=== PATIENT | male | born 1955 | race Two or more races ===

== ENCOUNTER 2017-04-12 14:35 | Inpatient (IN) | payer MEDICAID ==
[~2017-04-12] VITALS: Ht 170.2 cm; Wt 56.7 kg
[2017-04-12 14:35] VITALS: BP 119/71
[2017-04-12] MEDS ORDERED: LASIX20 M1 ORAL (14:40)
[2017-04-12] MEDS ORDERED: CLOPIDOGREL75 MG ORAL (14:40)
[2017-04-12] MEDS ORDERED: ASPIR 8181 MG ORAL (14:40)
[2017-04-12] MEDS ORDERED: ATORVASTATIN CA40 MG ORAL (14:40)
[2017-04-12] MEDS ORDERED: CARVEDILOL3.125 MG ORAL (14:40)
[2017-04-12] MEDS ORDERED: SPIRONOLACTONE1 EACH ORAL (14:40)
[2017-04-12] MEDS ORDERED: LISINOPRIL2.5 MG ORAL (14:40)
--- NOTE | 2017-04-12 14:41 | Emergency Room Report ---
History of Present Illness General Chief Complaint: Chest Pain Source: Patient, EMS Present Illness HPI This is a 61-year-old male who presented after increased difficulty breathing. Patient gradual onset of symptoms. Patient reports having increased cough as well as the trouble with his respirations for approximately 3 days. The patient had prior history of cardiac disease. Patient was noted to have 2 prior heart attacks. Patient states he is currently a smoker. He states he normally smokes one to 2 cigarettes a day. The patient had been reportedly taking diuretics. Patient prior history of congestive heart failure with an ejection fraction approximately 20%. Allergies: Coded Allergies: No Known Allergies (Unverified , 04/12/17) Patient History Past Medical History: see triage record Reviewed Nursing Documentation: PMH: Agreed, PSxH: Agreed Nursing Documentation-PMH Past Medical History: No History, Except For Hx Cardiac Problems: Yes - CHF Hx Hypertension: Yes Review of Systems All Other Systems: negative except mentioned in HPI Physical Exam Vital Signs Date Time Temp Pulse Resp B/P (MAP) Pulse Ox O2 Delivery O2 Flow Rate FiO2 04/12/17 14:27 98.2 76 20 128/85 98 Room Air Sp02 EP Interpretation: reviewed, normal General Appearance: normal inspection, well appearing, no apparent distress, alert, GCS 15 Head: atraumatic ENT: normal ENT inspection, hearing grossly normal, normal voice Neck: normal inspection, full range of motion, supple, no bony tend Respiratory: normal inspection, lungs clear, normal breath sounds, no respiratory distress, no retraction, no wheezing Cardiovascular #1: regular rate, rhythm, no edema Gastrointestinal: normal inspection, normal bowel sounds, non tender, soft, no guarding, no hernia Genitourinary: no CVA tenderness Musculoskeletal: normal inspection, back normal, normal range of motion Neurologic: normal inspection, alert, oriented x3, responsive, medicare insurance specialist III-XII nml as tested, speech normal Psychiatric: normal inspection, judgement/insight normal, mood/affect normal Skin: normal inspection, normal color, no rash Medical Decision Making Diagnostic Impression: Primary Impression: Chest pain Additional Impressions: ACS (acute coronary syndrome) CHF (congestive heart failure) ER Course Presented for chest pain. Differential diagnosis included but was not limited to acute coronary syndrome, pulmonary embolism, pneumonia, aortic dissection, shingles, pneumothorax, aortic dissection, esophageal rupture, pericarditis. Because of complexity of patient's case laboratory testing and imaging studies were ordered. EKG interpreted by me showed normal sinus rhythm with a rate of 70 with inferior T wave inversion. There is no acute ST changes noted.Laboratory testing was notable for elevated BNP. Initial troponin was negativeThe patient was noted have some wheezing on exam and was given a breathing treatment with DuoNeb with some improvement respiratory difficulty. Patient was also given IV Lasix. Patient was noted to have high risk for acute coronary syndrome due to prior coronary artery disease.Patient was discussed with Dr. hudson for inpatient management Labs Test 04/12/17 15:00 04/12/17 17:10 White Blood Count 8.5 K/UL (4.8-10.8) Red Blood Count 4.80 M/UL (4.70-6.10) Hemoglobin 14.4 G/DL (14.2-18.0) Hematocrit 42.2 % (42.0-52.0) Mean Corpuscular Volume 88 FL (80-99) Mean Corpuscular Hemoglobin 30.1 PG (27.0-31.0) Mean Corpuscular Hemoglobin Concent 34.3 G/DL (32.0-36.0) Red Cell Distribution Width 13.4 % (11.6-14.8) Platelet Count 187 K/UL (150-450) Mean Platelet Volume 8.2 FL (6.5-10.1) Neutrophils (%) (Auto) 69.2 % (45.0-75.0) Lymphocytes (%) (Auto) 17.7 % (20.0-45.0) Monocytes (%) (Auto) 8.8 % (1.0-10.0) Eosinophils (%) (Auto) 3.3 % (0.0-3.0) Basophils (%) (Auto) 1.1 % (0.0-2.0) Prothrombin Time 9.7 SEC (9.30-11.50) Prothromb Time International Ratio 0.9 (0.9-1.1) Activated Partial Thromboplast Time 25 SEC (23-33) Sodium Level 140 mEQ/L (135-145) Potassium Level 4.0 mEQ/L (3.4-4.9) Chloride Level 103 mEQ/L (98-107) Carbon Dioxide Level 26 mEQ/L (20-30) Anion Gap 11 (5-15) Blood Urea Nitrogen 17 mg/dL (7-23) Creatinine 0.8 mg/dL (0.7-1.2) Estimat Glomerular Filtration Rate > 60 mL/min (>60) Glucose Level 102 mg/dL (74-106) Lactic Acid Level 1.30 mmol/L (0.66-2.22) Calcium Level 9.3 mg/dL (8.6-10.2) Total Bilirubin 0.7 mg/dL (0.0-1.2) Aspartate Amino Transf (AST/SGOT) 25 U/L (5-40) Alanine Aminotransferase (ALT/SGPT) 28 U/L (3-41) Alkaline Phosphatase 125 U/L (40-129) Total Creatine Kinase 54 U/L (38-174) Creatine Kinase MB < 1.5 ng/mL (< 6.7) Creatine Kinase MB Relative Index Troponin I < 0.30 ng/mL (<=0.30) Pro-B-Type Natriuretic Peptide 556 pg/mL (0-125) Total Protein 6.7 g/dL (6.6-8.7) Albumin 4.0 g/dL (3.5-5.2) Globulin 2.7 g/dL Albumin/Globulin Ratio 1.4 (1.0-2.7) Urine Color Yellow Urine Appearance Clear Urine pH 6 (4.5-8.0) Urine Specific [place] 1.015 (1.005-1.035) Urine Protein Negative (NEGATIVE) Urine Glucose (UA) Negative (NEGATIVE) Urine Ketones Negative (NEGATIVE) Urine Occult Blood Negative (NEGATIVE) Urine Nitrite Negative (NEGATIVE) Urine Bilirubin Negative (NEGATIVE) Urine Urobilinogen 4 MG/DL (0.0-1.0) Urine Leukocyte Esterase Negative (NEGATIVE) EKG Diagnostic Results Rate: normal - 70 Rhythm: NSR ST Segments: no acute changes Rhythm Strip Diag. Results EP Interpretation: yes Rhythm: NSR, no PVC's, no ectopy Chest X-Ray Diagnostic Results Chest X-Ray Diagnostic Results : Chest X-Ray Ordered: Yes # of Views/Limited/Complete: 1 View Indication: Chest Pain EP Interpretation: No Interpretation: no consolidation, no effusion, no pneumothorax, other - enlarged cardiac silhouette Impression: Other - chf Last Vital Signs Date Time Temp Pulse Resp B/P (MAP) Pulse Ox O2 Delivery O2 Flow Rate FiO2 04/12/17 14:27 98.2 76 20 128/85 98 Room Air Status: unchanged Disposition: ADMITTED INPATIENT Condition: Mario Del Rosario Apr 12, 2017 14:41
[2017-04-12] MEDS ORDERED: Albuterol/Ipratropium 3ml neb HHN ONE (14:45)
--- NOTE | 2017-04-12 15:11 | Diagnostic Imaging Report ---
Indication: Dyspnea Comparison: None A single view chest radiograph was obtained. Findings: Cardiomediastinal appearance is within normal limits for age. Pulmonary vascularity is appropriate. The diaphragmatic contour is smooth and costophrenic angles are sharp. No pleural effusions are identified. The bones are unremarkable. Impression: No acute findings
[2017-04-12] MEDS ORDERED: Unasyn 3gm Inj ONE ×2 (15:13→23:37)
[2017-04-12] MEDS ORDERED: Tubing IV Cassette IV ONE (15:13)
[2017-04-12] MEDS ORDERED: NS 55 ML IV ONE (15:13)
[2017-04-12] MEDS: Ampicillin/Sulbactam Sod 3 GM in NS 110 ML IV SCH ×2 (15:15→20:45)
[2017-04-12 15:44] LABS: BASOPHILS % (AUTO) 1.1 % (0.0-2.0); EOSINOPHILS % (AUTO) 3.3 % (0.0-3.0); LYMPHOCYTES % (AUTO) 17.7 % (20.0-45.0); MEAN CORPUSCULAR HEMOGLOBIN 30.1 PG (27.0-31.0); MEAN CORPUSCULAR HGB CONC 34.3 G/DL (32.0-36.0); MEAN CORPUSCULAR VOLUME 88 FL (80-99); MEAN PLATELET VOLUME 8.2 FL (6.5-10.1); MONOCYTES % (AUTO) 8.8 % (1.0-10.0); NEUTROPHILS % (AUTO) 69.2 % (45.0-75.0); PLATELET COUNT 187 K/UL (150-450); RED CELL DISTRIBUTION WIDTH 13.4 % (11.6-14.8); WHITE BLOOD COUNT 8.5 K/UL (4.8-10.8)
[2017-04-12 15:55] LABS: INR 0.9 (0.9-1.1); PROTHROMBIN TIME 9.7 SEC (9.30-11.50)
[2017-04-12 15:59] LABS: TROPONIN I < 0.30 ng/mL (<=0.30)
[2017-04-12 16:00] VITALS: BP 113/69
[2017-04-12 16:01] LABS: ALANINE AMINOTRANSFERASE 28 U/L (3-41); ALBUMIN/GLOBULIN RATIO 1.4 (1.0-2.7); ANION GAP 11 (5-15); ASPARTATE AMINO TRANSFERASE 25 U/L (5-40); CALCIUM 9.3 mg/dL (8.6-10.2); CARBON DIOXIDE 26 mEQ/L (20-30); CHLORIDE 103 mEQ/L (98-107); CREATININE 0.8 mg/dL (0.7-1.2); GLOMERULAR FILTRATION RATE > 60 mL/min (>60); HEMOLYSIS 7; SODIUM 140 mEQ/L (135-145); TOTAL PROTEIN 6.7 g/dL (6.6-8.7)
[2017-04-12 16:12] LABS: CKMB < 1.5 ng/mL (< 6.7)
[2017-04-12 17:44] LABS: APPEARANCE,URINE CLEAR; KETONES,URINE NEGATIVE (NEGATIVE); LEUKOCYTE ESTERASE ,URINE NEGATIVE (NEGATIVE); NITRITE,URINE NEGATIVE (NEGATIVE); PH,URINE 6 (4.5-8.0); PROTEIN,URINE NEGATIVE (NEGATIVE); UROBILINOGEN,URINE 4 MG/DL (0.0-1.0)
[2017-04-12 18:00] VITALS: BP 117/77
[2017-04-12] MEDS ORDERED: Nitroglycerin Subl 0.4mg tab SL PRN (19:45)
[2017-04-12] MEDS ORDERED: Ketorolac 30mg Inj IV PRN (19:45)
[2017-04-12] MEDS ORDERED: Morphine Sulfate 2mg/ml Inj IVP PRN (19:45)
[2017-04-12] MEDS ORDERED: Miralax 17gm pkt ORAL PRN (19:45)
[2017-04-12] MEDS ORDERED: Albuterol/Ipratropium 3ml neb HHN PRN (19:45)
[2017-04-12] MEDS ORDERED: dilTIAZem HCl 25mg/5ml Inj IV PRN (19:45)
[2017-04-12] MEDS ORDERED: Enalaprilat 2.5mg/2ml Inj IV PRN (19:45)
[2017-04-12 23:00] VITALS: BP 109/78
[2017-04-12] MEDS: Atorvastatin 80mg tab ORAL SCH (23:51)
[2017-04-12] MEDS: Heparin 5000 units/ml inj SUBQ SCH (23:57)
[2017-04-13] VITALS: BP 119/81
[2017-04-13 04:00] VITALS: BP 112/72
[2017-04-13 08:19] VITALS: BP 112/66
[2017-04-13 08:25] LABS: BASOPHILS % (AUTO) 0.8 % (0.0-2.0); EOSINOPHILS % (AUTO) 3.4 % (0.0-3.0); LYMPHOCYTES % (AUTO) 16.7 % (20.0-45.0); MEAN CORPUSCULAR HEMOGLOBIN 30.5 PG (27.0-31.0); MEAN CORPUSCULAR HGB CONC 34.5 G/DL (32.0-36.0); MEAN CORPUSCULAR VOLUME 89 FL (80-99); MEAN PLATELET VOLUME 8.5 FL (6.5-10.1); NEUTROPHILS % (AUTO) 71.1 % (45.0-75.0); PLATELET COUNT 182 K/UL (150-450); RED CELL DISTRIBUTION WIDTH 13.6 % (11.6-14.8); WHITE BLOOD COUNT 9.2 K/UL (4.8-10.8)
[2017-04-13 08:34] LABS: CHOLESTEROL/HDL RATIO 5.8 (3.3-4.4); CRP QUANT 0.8 mg/dL (< 0.5)
[2017-04-13 08:37] LABS: TROPONIN I < 0.30 ng/mL (<=0.30)
[2017-04-13 08:46] LABS: THYROID STIMULATING HORMONE 0.679 uIU/mL (0.300-4.500)
[2017-04-13] MEDS ORDERED: Aspirin EC 81mg tab ORAL SCH (09:00)
[2017-04-13] MEDS: Heparin 5000 units/ml inj SUBQ SCH ×2 (10:02→20:25)
[2017-04-13] MEDS: Lisinopril 2.5mg tab ORAL SCH (10:11)
[2017-04-13 11:26] VITALS: BP 118/78
[2017-04-13] MEDS: Aspirin Baby 81mg ORAL SCH (11:49)
--- NOTE | 2017-04-13 11:54 | History and Physical ---
History of Present Illness General Date patient seen: Apr 12, 2017 Reason for Hospitalization: Chest Pain Present Illness HPI 61-year-old homeless male who presented after increased difficulty breathing. Patient gradual onset of symptoms. Patient reports having increased cough as well as the trouble with his respirations for approximately 3 days. C/O of chest pain as well. Patient states he is currently a smoker. The patient had been reportedly taking diuretics. Patient prior history of congestive heart failure with an ejection fraction approximately 20%. Allergies: Coded Allergies: No Known Allergies (Unverified , 04/12/17) Medication History Scheduled Aspirin* (Aspir 81*), 81 MG ORAL DAILY, (Reported) Atorvastatin Calcium* (Atorvastatin Calcium*), 40 MG ORAL BEDTIME, (Reported) Carvedilol* (Carvedilol*), 3.125 MG ORAL EVERY 12 HOURS, (Reported) Clopidogrel* (Clopidogrel*), 75 MG ORAL DAILY, (Reported) Furosemide* (Lasix*), 20 MG ORAL TWICE A DAY, (Reported) Lisinopril* (Lisinopril*), 2.5 MG ORAL DAILY, (Reported) Spironolact/Hydrochlorothiazid (Spironolactone-Hctz 25-25 Tab), 1 TAB ORAL DAILY , (Reported) Patient History Healthcare decision maker Resuscitation status Full Code Advanced Directive on File No Past Medical/Surgical History Past Medical/Surgical History: (1) Cardiomyopathy Review of Systems Constitutional: Reports: no symptoms Eye: Reports: no symptoms ENT: Reports: no symptoms Physical Exam General Appearance: WD/WN Lines, tubes and drains: peripheral HEENT: normocephalic, atraumatic, anicteric Neck: non-tender, normal alignment Respiratory/Chest: chest wall non-tender Breasts: no masses Cardiovascular/Chest: normal peripheral pulses Abdomen: normal bowel sounds, non tender Genitourinary/Rectal: normal genital exam Extremities: normal range of motion Last 24 Hour Vital Signs Date Time Temp Pulse Resp B/P (MAP) Pulse Ox O2 Delivery O2 Flow Rate FiO2 04/13/17 11:26 97.7 79 20 118/78 98 Room Air 04/13/17 10:11 112/66 04/13/17 10:11 77 112/66 04/13/17 08:19 97.3 77 20 112/66 97 Room Air 04/13/17 07:22 68 16 Room Air 04/13/17 06:24 57 04/13/17 06:23 67 04/13/17 04:00 81 04/13/17 04:00 97.3 82 20 112/72 93 Room Air 04/13/17 03:38 84 04/13/17 00:00 75 04/13/17 00:00 96.6 69 21 119/81 94 Room Air 04/12/17 23:00 70 17 109/78 95 Room Air 04/12/17 23:00 98.2 70 17 109/78 95 Room Air 04/12/17 21:00 69 119/81 04/12/17 18:00 67 18 117/77 94 Room Air 04/12/17 16:00 66 12 113/69 100 Room Air 04/12/17 15:12 70 15 98 Room Air 04/12/17 15:02 66 16 99 Room Air 04/12/17 15:02 66 16 Room Air 04/12/17 14:35 76 20 Room Air 04/12/17 14:35 69 16 119/71 96 Room Air 04/12/17 14:27 98.2 76 20 128/85 98 Room Air Intake and Output 04/13/17 04/14/17 19:00 07:00 Intake Total 320 ml Output Total 350 ml Balance -30 ml Intake Oral 320 ml Output Urine Total 350 ml Laboratory Tests Test 04/12/17 15:00 04/12/17 17:10 04/13/17 06:54 White Blood Count 8.5 K/UL (4.8-10.8) 9.2 K/UL (4.8-10.8) Red Blood Count 4.80 M/UL (4.70-6.10) 5.30 M/UL (4.70-6.10) Hemoglobin 14.4 G/DL (14.2-18.0) 16.2 G/DL (14.2-18.0) Hematocrit 42.2 % (42.0-52.0) 47.0 % (42.0-52.0) Mean Corpuscular Volume 88 FL (80-99) 89 FL (80-99) Mean Corpuscular Hemoglobin 30.1 PG (27.0-31.0) 30.5 PG (27.0-31.0) Mean Corpuscular Hemoglobin Concent 34.3 G/DL (32.0-36.0) 34.5 G/DL (32.0-36.0) Red Cell Distribution Width 13.4 % (11.6-14.8) 13.6 % (11.6-14.8) Platelet Count 187 K/UL (150-450) 182 K/UL (150-450) Mean Platelet Volume 8.2 FL (6.5-10.1) 8.5 FL (6.5-10.1) Neutrophils (%) (Auto) 69.2 % (45.0-75.0) 71.1 % (45.0-75.0) Lymphocytes (%) (Auto) 17.7 % (20.0-45.0) L 16.7 % (20.0-45.0) L Monocytes (%) (Auto) 8.8 % (1.0-10.0) 8.0 % (1.0-10.0) Eosinophils (%) (Auto) 3.3 % (0.0-3.0) H 3.4 % (0.0-3.0) H Basophils (%) (Auto) 1.1 % (0.0-2.0) 0.8 % (0.0-2.0) Prothrombin Time 9.7 SEC (9.30-11.50) 10.0 SEC (9.30-11.50) Prothromb Time International Ratio 0.9 (0.9-1.1) 1.0 (0.9-1.1) Activated Partial Thromboplast Time 25 SEC (23-33) 27 SEC (23-33) Sodium Level 140 mEQ/L (135-145) Potassium Level 4.0 mEQ/L (3.4-4.9) Chloride Level 103 mEQ/L (98-107) Carbon Dioxide Level 26 mEQ/L (20-30) Anion Gap 11 (5-15) Blood Urea Nitrogen 17 mg/dL (7-23) Creatinine 0.8 mg/dL (0.7-1.2) Estimat Glomerular Filtration Rate > 60 mL/min (>60) Glucose Level 102 mg/dL (74-106) Lactic Acid Level 1.30 mmol/L (0.66-2.22) Calcium Level 9.3 mg/dL (8.6-10.2) Total Bilirubin 0.7 mg/dL (0.0-1.2) Aspartate Amino Transf (AST/SGOT) 25 U/L (5-40) Alanine Aminotransferase (ALT/SGPT) 28 U/L (3-41) Alkaline Phosphatase 125 U/L (40-129) Total Creatine Kinase 54 U/L (38-174) Creatine Kinase MB < 1.5 ng/mL (< 6.7) Creatine Kinase MB Relative Index Troponin I < 0.30 ng/mL (<=0.30) < 0.30 ng/mL (<=0.30) Pro-B-Type Natriuretic Peptide 556 pg/mL (0-125) H Total Protein 6.7 g/dL (6.6-8.7) Albumin 4.0 g/dL (3.5-5.2) Globulin 2.7 g/dL Albumin/Globulin Ratio 1.4 (1.0-2.7) Urine Color Yellow Urine Appearance Clear Urine pH 6 (4.5-8.0) Urine Specific [place] 1.015 (1.005-1.035) Urine Protein Negative (NEGATIVE) Urine Glucose (UA) Negative (NEGATIVE) Urine Ketones Negative (NEGATIVE) Urine Occult Blood Negative (NEGATIVE) Urine Nitrite Negative (NEGATIVE) Urine Bilirubin Negative (NEGATIVE) Urine Urobilinogen 4 MG/DL (0.0-1.0) H Urine Leukocyte Esterase Negative (NEGATIVE) C-Reactive Protein, Quantitative 0.8 mg/dL (< 0.5) H Triglycerides Level 129 mg/dL (< 150) Cholesterol Level 227 mg/dL (< 200) H LDL Cholesterol 162 mg/dL (60-99) H HDL Cholesterol 39 mg/dL (> 60) Cholesterol/HDL Ratio 5.8 (3.3-4.4) H Thyroid Stimulating Hormone (TSH) 0.679 uIU/mL (0.300-4.500) Height (Feet): 5 Height (Inches): 7.00 Weight (Pounds): 125 Medications Current Medications Medications (Trade) Dose Ordered Sig/Cinda Route PRN Reason Start Time Stop Time Status Last Admin Dose Admin Acetaminophen (Tylenol) 650 mg Q4H PRN ORAL FEVER 04/12/17 19:45 05/12/17 19:44 Albuterol/ Ipratropium (DuoNeb 0.5-3(2.5)mg/3ml) 3 ml EVERY 4 HOURS PRN HHN Shortness of Breath 04/12/17 19:45 04/17/17 19:44 Aspirin (ASA) 162 mg DAILY ORAL 04/13/17 11:00 05/13/17 10:59 Atorvastatin Calcium (Lipitor) 40 mg BEDTIME ORAL 04/12/17 21:00 05/12/17 20:59 04/12/17 23:51 Carvedilol (Coreg) 3.125 mg EVERY 12 HOURS ORAL 04/12/17 21:00 05/12/17 20:59 04/13/17 10:11 Clopidogrel Bisulfate (Plavix) 75 mg DAILY ORAL 04/13/17 09:00 05/13/17 08:59 04/13/17 09:59 Diltiazem HCl (Cardizem) 10 mg EVERY HOUR PRN IV heart rate more than 120, 04/12/17 19:45 05/12/17 19:44 Enalaprilat (Vasotec) 2.5 mg EVERY 6 HOURS PRN IV sbp more than 160 04/12/17 19:45 05/12/17 19:44 Furosemide (Lasix) 20 mg TWICE A DAY ORAL 04/13/17 09:00 05/13/17 08:59 04/13/17 10:00 Heparin Sodium (Porcine) (Heparin 5000 units/ml) 5,000 units EVERY 12 HOURS SUBQ 04/12/17 21:00 05/12/17 20:59 04/13/17 10:02 Ketorolac Tromethamine (Toradol 30mg) 30 mg Q6HR PRN IV moderate pain ( 4-6) 04/12/17 19:45 04/17/17 19:44 04/13/17 10:13 Lisinopril (Zestril) 2.5 mg DAILY ORAL 04/13/17 09:00 05/13/17 08:59 04/13/17 10:11 Morphine Sulfate (Morphine Sulfate) 2 mg EVERY 4 HOURS PRN IVP severe Pain (Pain Scale 7-10) 04/12/17 19:45 04/19/17 19:44 Nitroglycerin (Ntg) 0.4 mg PRN PRN SL Prn Chest Pain EVERY 5 MINUTES 04/12/17 19:45 05/12/17 19:44 Ondansetron HCl (Zofran) 4 mg Q6H PRN IVP Nausea & Vomiting 04/12/17 19:45 05/12/17 19:44 Polyethylene Glycol (Miralax) 17 gm DAILYPRN PRN ORAL Constipation 04/12/17 19:45 05/12/17 19:44 Temazepam (Restoril) 15 mg HSPRN PRN ORAL Insomnia 04/12/17 19:45 04/19/17 19:44 Assessment/Plan Problem List: (1) Purulent bronchitis ICD Codes: J41.1 - Mucopurulent chronic bronchitis SNOMED: 90026782 (2) ACS (acute coronary syndrome) ICD Codes: I24.9 - Acute ischemic heart disease, unspecified SNOMED: 604302823 (3) Cardiomyopathy ICD Codes: I42.9 - Cardiomyopathy, unspecified SNOMED: 78097368 Assessment/Plan cardiology evaluation respiratory treatment echo serial enzymes antitussives. LARISSA MAXWELL Apr 13, 2017 11:54
--- NOTE | 2017-04-13 11:56 | Pulmonology Progress Note ---
Assessment/Plan Problems: (1) Purulent bronchitis (2) ACS (acute coronary syndrome) (3) Cardiomyopathy Assessment/Plan enzymes negative respiratory treatment social service consult Subjective ROS Limited/Unobtainable: No Constitutional: Reports: no symptoms HEENT: Repors: no symptoms Respiratory: Reports: no symptoms Allergies: Coded Allergies: No Known Allergies (Unverified , 04/12/17) Objective Last 24 Hour Vital Signs Date Time Temp Pulse Resp B/P (MAP) Pulse Ox O2 Delivery O2 Flow Rate FiO2 04/13/17 11:26 97.7 79 20 118/78 98 Room Air 04/13/17 10:11 112/66 04/13/17 10:11 77 112/66 04/13/17 08:19 97.3 77 20 112/66 97 Room Air 04/13/17 07:22 68 16 Room Air 04/13/17 06:24 57 04/13/17 06:23 67 04/13/17 04:00 81 04/13/17 04:00 97.3 82 20 112/72 93 Room Air 04/13/17 03:38 84 04/13/17 00:00 75 04/13/17 00:00 96.6 69 21 119/81 94 Room Air 04/12/17 23:00 70 17 109/78 95 Room Air 04/12/17 23:00 98.2 70 17 109/78 95 Room Air 04/12/17 21:00 69 119/81 04/12/17 18:00 67 18 117/77 94 Room Air 04/12/17 16:00 66 12 113/69 100 Room Air 04/12/17 15:12 70 15 98 Room Air 04/12/17 15:02 66 16 99 Room Air 04/12/17 15:02 66 16 Room Air 04/12/17 14:35 76 20 Room Air 04/12/17 14:35 69 16 119/71 96 Room Air 04/12/17 14:27 98.2 76 20 128/85 98 Room Air Intake and Output 04/13/17 04/14/17 19:00 07:00 Intake Total 320 ml Output Total 350 ml Balance -30 ml Intake Oral 320 ml Output Urine Total 350 ml General Appearance: no acute distress Respiratory/Chest: chest wall non-tender, normal breath sounds Cardiovascular: normal peripheral pulses, normal rate Abdomen: normal bowel sounds, soft, non tender Extremities: no cyanosis Laboratory Tests 04/12/17 15:00: White Blood Count 8.5, Red Blood Count 4.80, Hemoglobin 14.4, Hematocrit 42.2, Mean Corpuscular Volume 88, Mean Corpuscular Hemoglobin 30.1, Mean Corpuscular Hemoglobin Concent 34.3, Red Cell Distribution Width 13.4, Platelet Count 187, Mean Platelet Volume 8.2, Neutrophils (%) (Auto) 69.2, Lymphocytes (%) (Auto) 17.7L, Monocytes (%) (Auto) 8.8, Eosinophils (%) (Auto) 3.3H, Basophils (%) ( Auto) 1.1, Prothrombin Time 9.7, Prothromb Time International Ratio 0.9, Activated Partial Thromboplast Time 25, Sodium Level 140, Potassium Level 4.0, Chloride Level 103, Carbon Dioxide Level 26, Anion Gap 11, Blood Urea Nitrogen 17, Creatinine 0.8, Estimat Glomerular Filtration Rate > 60, Glucose Level 102, Lactic Acid Level 1.30, Calcium Level 9.3, Total Bilirubin 0.7, Aspartate Amino Transf (AST/SGOT) 25, Alanine Aminotransferase (ALT/SGPT) 28, Alkaline Phosphatase 125, Total Creatine Kinase 54, Creatine Kinase MB < 1.5, Creatine Kinase MB Relative Index , Troponin I < 0.30, Pro-B-Type Natriuretic Peptide 556H, Total Protein 6.7, Albumin 4.0, Globulin 2.7, Albumin/Globulin Ratio 1.4 04/12/17 17:10: Urine Color Yellow, Urine Appearance Clear, Urine pH 6, Urine Specific [place] 1.015, Urine Protein Negative, Urine Glucose (UA) Negative, Urine Ketones Negative, Urine Occult Blood Negative, Urine Nitrite Negative, Urine Bilirubin Negative, Urine Urobilinogen 4H, Urine Leukocyte Esterase Negative 04/13/17 06:54: White Blood Count 9.2, Red Blood Count 5.30, Hemoglobin 16.2, Hematocrit 47.0, Mean Corpuscular Volume 89, Mean Corpuscular Hemoglobin 30.5, Mean Corpuscular Hemoglobin Concent 34.5, Red Cell Distribution Width 13.6, Platelet Count 182, Mean Platelet Volume 8.5, Neutrophils (%) (Auto) 71.1, Lymphocytes (%) (Auto) 16.7L, Monocytes (%) (Auto) 8.0, Eosinophils (%) (Auto) 3.4H, Basophils (%) ( Auto) 0.8, Prothrombin Time 10.0, Prothromb Time International Ratio 1.0, Activated Partial Thromboplast Time 27, Troponin I < 0.30, C-Reactive Protein, Quantitative 0.8H, Triglycerides Level 129, Cholesterol Level 227H, LDL Cholesterol 162H, HDL Cholesterol 39, Cholesterol/HDL Ratio 5.8H, Thyroid Stimulating Hormone (TSH) 0.679 Current Medications Medications (Trade) Dose Ordered Sig/Cinda Route PRN Reason Start Time Stop Time Status Last Admin Dose Admin Acetaminophen (Tylenol) 650 mg Q4H PRN ORAL FEVER 04/12/17 19:45 05/12/17 19:44 Albuterol/ Ipratropium (DuoNeb 0.5-3(2.5)mg/3ml) 3 ml EVERY 4 HOURS PRN HHN Shortness of Breath 04/12/17 19:45 04/17/17 19:44 Aspirin (ASA) 162 mg DAILY ORAL 04/13/17 11:00 05/13/17 10:59 04/13/17 11:49 Atorvastatin Calcium (Lipitor) 40 mg BEDTIME ORAL 04/12/17 21:00 05/12/17 20:59 04/12/17 23:51 Carvedilol (Coreg) 3.125 mg EVERY 12 HOURS ORAL 04/12/17 21:00 05/12/17 20:59 04/13/17 10:11 Clopidogrel Bisulfate (Plavix) 75 mg DAILY ORAL 04/13/17 09:00 05/13/17 08:59 04/13/17 09:59 Diltiazem HCl (Cardizem) 10 mg EVERY HOUR PRN IV heart rate more than 120, 04/12/17 19:45 05/12/17 19:44 Enalaprilat (Vasotec) 2.5 mg EVERY 6 HOURS PRN IV sbp more than 160 04/12/17 19:45 05/12/17 19:44 Furosemide (Lasix) 20 mg TWICE A DAY ORAL 04/13/17 09:00 05/13/17 08:59 04/13/17 10:00 Heparin Sodium (Porcine) (Heparin 5000 units/ml) 5,000 units EVERY 12 HOURS SUBQ 04/12/17 21:00 05/12/17 20:59 04/13/17 10:02 Ketorolac Tromethamine (Toradol 30mg) 30 mg Q6HR PRN IV moderate pain ( 4-6) 04/12/17 19:45 04/17/17 19:44 04/13/17 10:13 Lisinopril (Zestril) 2.5 mg DAILY ORAL 04/13/17 09:00 05/13/17 08:59 04/13/17 10:11 Morphine Sulfate (Morphine Sulfate) 2 mg EVERY 4 HOURS PRN IVP severe Pain (Pain Scale 7-10) 04/12/17 19:45 04/19/17 19:44 Nitroglycerin (Ntg) 0.4 mg PRN PRN SL Prn Chest Pain EVERY 5 MINUTES 04/12/17 19:45 05/12/17 19:44 Ondansetron HCl (Zofran) 4 mg Q6H PRN IVP Nausea & Vomiting 04/12/17 19:45 05/12/17 19:44 Polyethylene Glycol (Miralax) 17 gm DAILYPRN PRN ORAL Constipation 04/12/17 19:45 05/12/17 19:44 Temazepam (Restoril) 15 mg HSPRN PRN ORAL Insomnia 04/12/17 19:45 04/19/17 19:44 LARISSA MAXWELL Apr 13, 2017 11:56
[2017-04-13] MEDS ORDERED: Promethazine/Codeine 5ml UD ORAL PRN (12:00)
[2017-04-13 15:20] VITALS: BP 102/62
[2017-04-13] MEDS: Theophylline ER 100mg ORAL SCH (20:23)
[2017-04-13] MEDS: Atorvastatin 80mg tab ORAL SCH (20:24)
--- NOTE | 2017-04-13 20:36 | Cardiology Progress Note ---
Assessment/Plan Assessment/Plan chest pain for 2 mon few seond at a time worse only in postion nto with activity cm global sig mr htn repeorted hs of stent this particular pain which he is now having with neg trop on going for 2 mon lasts a few sec and only in certian position not worse with activity sound m/s in origin he apprently has underlyign cad which if was a cause of this pain i would expect some degree of abn cardiac enzyme which ehdose not have echo reviewed global hypo i suspect the increase apical echo are trabeculation rather than a thrombus there is wall motion in the are but hypokinetic not dyskinetic 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 all trop neg recently has had extensive eval at [facility] since his torp are neg and pain so atypical i dont want to expose him to more radiation and testing at this time Objective Last 24 Hour Vital Signs Date Time Temp Pulse Resp B/P (MAP) Pulse Ox O2 Delivery O2 Flow Rate FiO2 04/13/17 19:18 72 16 Room Air 21 04/13/17 16:00 66 04/13/17 15:20 97.7 73 20 102/62 96 Room Air 04/13/17 12:00 80 04/13/17 11:26 97.7 79 20 118/78 98 Room Air 04/13/17 10:11 112/66 04/13/17 10:11 77 112/66 04/13/17 08:19 97.3 77 20 112/66 97 Room Air 04/13/17 08:00 74 04/13/17 07:22 68 16 Room Air 04/13/17 06:24 57 04/13/17 06:23 67 04/13/17 04:00 81 04/13/17 04:00 97.3 82 20 112/72 93 Room Air 04/13/17 03:38 84 04/13/17 00:00 75 04/13/17 00:00 96.6 69 21 119/81 94 Room Air 04/12/17 23:00 70 17 109/78 95 Room Air 04/12/17 23:00 98.2 70 17 109/78 95 Room Air 04/12/17 21:00 69 119/81 Intake and Output 04/13/17 04/14/17 19:00 07:00 Intake Total 810 ml Output Total 550 ml Balance 260 ml Intake Oral 810 ml Output Urine Total 550 ml Laboratory Tests Test 04/13/17 06:54 White Blood Count 9.2 K/UL (4.8-10.8) Red Blood Count 5.30 M/UL (4.70-6.10) Hemoglobin 16.2 G/DL (14.2-18.0) Hematocrit 47.0 % (42.0-52.0) Mean Corpuscular Volume 89 FL (80-99) Mean Corpuscular Hemoglobin 30.5 PG (27.0-31.0) Mean Corpuscular Hemoglobin Concent 34.5 G/DL (32.0-36.0) Red Cell Distribution Width 13.6 % (11.6-14.8) Platelet Count 182 K/UL (150-450) Mean Platelet Volume 8.5 FL (6.5-10.1) Neutrophils (%) (Auto) 71.1 % (45.0-75.0) Lymphocytes (%) (Auto) 16.7 % (20.0-45.0) L Monocytes (%) (Auto) 8.0 % (1.0-10.0) Eosinophils (%) (Auto) 3.4 % (0.0-3.0) H Basophils (%) (Auto) 0.8 % (0.0-2.0) Prothrombin Time 10.0 SEC (9.30-11.50) Prothromb Time International Ratio 1.0 (0.9-1.1) Activated Partial Thromboplast Time 27 SEC (23-33) Troponin I < 0.30 ng/mL (<=0.30) C-Reactive Protein, Quantitative 0.8 mg/dL (< 0.5) H Triglycerides Level 129 mg/dL (< 150) Cholesterol Level 227 mg/dL (< 200) H LDL Cholesterol 162 mg/dL (60-99) H HDL Cholesterol 39 mg/dL (> 60) Cholesterol/HDL Ratio 5.8 (3.3-4.4) H Thyroid Stimulating Hormone (TSH) 0.679 uIU/mL (0.300-4.500) MAIA COPELAND Apr 13, 2017 20:36
[2017-04-14 00:18] VITALS: BP 98/49
--- NOTE | 2017-04-14 03:45 | Consultation ---
DATE OF CONSULTATION: 04/13/2017 CARDIAC CONSULTATION CONSULTING PHYSICIAN: Grabiel García M.D. REFERRING PHYSICIAN: Mata Holbrook M.D. REASON FOR REFERRAL: Chest pain. History of present illness: This is a middle-aged gentleman, who tells me he has been having two months of pain in the left side of the chest radiating to the back in certain position, twisting and turning. He states it does not get worse with activity and does not get worse with taking deep breath or coughing or in certain position. This has been going on for approximately two months. The pain lasts usually a few seconds and not exacerbated by activity. He has had this pain evaluated at [facility]. He had some kind of testing done one month ago and he was immediately discharged after that. He states he has had history of myocardial infarction on prior occasions and stenting and he has had poor muscle function on prior occasions. He does not have any PND or orthopnea. He has no palpitations, occasional dizziness, or lightheadedness. Past Medical History: Positive for high blood pressure, high cholesterol, heart attack, and stent. No cancer. No stroke. No hepatitis. No tuberculosis, asthma, or emphysema. No ulcers. No kidney or liver problems. No thyroid problems, anemia, or arthritis. ALLERGIES: He is not allergic to any medications. SOCIAL HISTORY: He smokes one to two cigarettes per day. PHYSICAL EXAMINATION: General: Shows to be middle-aged gentleman, in no respiratory distress. NECK: Supple. No jugular venous distention. LUNGS: Relatively clear although he has some rhonchi occasionally. Cardiac: Regular rate and rhythm. No heaves or thrills noted. He has a very faint holosystolic regurgitant murmur. ABDOMEN: Soft and nontender. Positive bowel sounds. Extremities: There is no clubbing or cyanosis nor is there any edema. Neurological: He is awake, alert, responsive, and in no apparent respiratory distress. Laboratory And Diagnostic Data: An electrocardiogram performed shows normal sinus rhythm with T-wave inversion in III and biphasic T-waves in aVF. No other significant abnormalities are noted. An echocardiogram has been performed. Unfortunately, I am unable to pull up the study to review. It showed severe global hypokinesis, ejection fraction 20% to 25%, questionable apical thrombus, E-point septal separation, moderate aortic cusp sclerosis, [id number] mitral regurgitation, pulmonary systolic pressure was in the 40s. His blood test, he has had white count of 9.2, hemoglobin 16.2, and platelet count 182,000. Sodium 140, potassium 4.0, chloride 103, bicarbonate 26, BUN 17, creatinine 0.8, and glucose of 102. Lactic acid is negative. Troponin was less than 0.01 on two separate occasions. ProBNP is only 556. Total cholesterol 227, LDL of 162, and HDL of 39. TSH is 0.6. His INR is 1.0 and PTT of 27. Urinalysis was fairly unremarkable. His chest x-ray performed in the emergency room shows normal limits and his pulmonary vasculature is appropriate and apparently no other significant abnormalities were noted. I was just able to pull up the study. He does have global hypokinesis but there is motion in all the ren to some degree. The increased echoes in the apex is suggestive of increased trabeculation almost suggestive of non-compaction cardiomyopathy. There is significant mitral regurgitation being documented. I am not convinced that any of the increased trabeculation markings are thrombus. There is wall motion in the areas that are noted, therefore unlikely that the thrombus would be forming in that area. ASSESSMENT AND PLAN: 1. Atypical chest pain. 2. Cardiomyopathy. 3. Mitral regurgitation. 4. Reported history of coronary artery disease. 5. Reported history of stent. 6. Hypertension. Dr. Holbrook, this patient was seen in cardiac consultation. 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 The pain as the patient describes as being going on for approximately two months and lasts for only a few seconds and worsens in certain positions, certainly it sounds like musculoskeletal pain. He may have underlying coronary artery disease that he has been treated with previously and he has had recent evaluations and appears to have had some kind of stress test recently that may have been performed. Nevertheless, I think he should have evaluation at [facility] again should he have new issues as he seemed to have had extensive workup and treatment at that facility and that could be followed up on. Grabiel García M.D. DR: Abel JOB#: [id number] CC:
[2017-04-14 04:20] VITALS: BP 99/59
[2017-04-14 08:05] VITALS: BP 101/67
[2017-04-14 08:43] LABS: TROPONIN I < 0.30 ng/mL (<=0.30)
[2017-04-14] MEDS: Lisinopril 2.5mg tab ORAL SCH (09:00)
[2017-04-14] MEDS: Aspirin Baby 81mg ORAL SCH (09:34)
[2017-04-14] MEDS: Theophylline ER 100mg ORAL SCH (09:34)
[2017-04-14] MEDS: Heparin 5000 units/ml inj SUBQ SCH (09:38)
[2017-04-14 11:45] VITALS: BP 104/53
--- NOTE | 2017-04-14 12:12 | Pulmonology Progress Note ---
Assessment/Plan Problems: (1) Purulent bronchitis (2) ACS (acute coronary syndrome) (3) Cardiomyopathy Assessment/Plan enzymes negative respiratory treatment social service consult cardiology note appreciated doing better dc home Subjective ROS Limited/Unobtainable: No Interval Events: no new complains Constitutional: Reports: no symptoms HEENT: Repors: no symptoms Respiratory: Reports: no symptoms Allergies: Coded Allergies: No Known Allergies (Unverified , 04/12/17) Objective Last 24 Hour Vital Signs Date Time Temp Pulse Resp B/P (MAP) Pulse Ox O2 Delivery O2 Flow Rate FiO2 04/14/17 11:45 97.7 84 20 104/53 96 Room Air 04/14/17 09:00 101/67 04/14/17 09:00 82 101/67 04/14/17 08:11 74 16 Room Air 21 04/14/17 08:05 98.2 82 20 101/67 97 Room Air 04/14/17 08:00 72 04/14/17 04:20 97.7 74 20 99/59 95 Room Air 04/14/17 04:00 76 04/14/17 00:18 97.7 74 20 98/49 94 Room Air 04/14/17 00:00 65 04/13/17 20:23 83 113/62 04/13/17 20:00 69 04/13/17 19:18 72 16 Room Air 21 04/13/17 16:00 66 04/13/17 15:20 97.7 73 20 102/62 96 Room Air Intake and Output 04/14/17 04/15/17 19:00 07:00 Intake Total 420 ml Balance 420 ml Intake Oral 420 ml # Voids 2 # Bowel Movements 1 General Appearance: WD/WN HEENT: normocephalic, atraumatic Respiratory/Chest: chest wall non-tender, lungs clear Cardiovascular: normal peripheral pulses, normal rate Abdomen: normal bowel sounds Genitourinary: normal external genitalia Skin: no rash 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, no motor/sensory deficits Lymphatic: no neck adenopathy, no groin adenopathy Microbiology Date/Time Source Procedure Growth Status 04/12/17 15:10 Blood Blood Culture - Preliminary NO GROWTH AFTER 24 HOURS Resulted 04/12/17 15:00 Blood Blood Culture - Preliminary NO GROWTH AFTER 24 HOURS Resulted Laboratory Tests 04/14/17 07:40: Troponin I < 0.30 Current Medications Medications (Trade) Dose Ordered Sig/Cinda Route PRN Reason Start Time Stop Time Status Last Admin Dose Admin Acetaminophen (Tylenol) 650 mg Q4H PRN ORAL FEVER 04/12/17 19:45 05/12/17 19:44 Albuterol/ Ipratropium (DuoNeb 0.5-3(2.5)mg/3ml) 3 ml EVERY 4 HOURS PRN HHN Shortness of Breath 04/12/17 19:45 04/17/17 19:44 Aspirin (ASA) 162 mg DAILY ORAL 04/13/17 11:00 05/13/17 10:59 04/14/17 09:34 Atorvastatin Calcium (Lipitor) 40 mg BEDTIME ORAL 04/12/17 21:00 05/12/17 20:59 04/13/17 20:24 Carvedilol (Coreg) 3.125 mg EVERY 12 HOURS ORAL 04/12/17 21:00 05/12/17 20:59 04/13/17 20:23 Clopidogrel Bisulfate (Plavix) 75 mg DAILY ORAL 04/13/17 09:00 05/13/17 08:59 04/14/17 09:37 Diltiazem HCl (Cardizem) 10 mg EVERY HOUR PRN IV heart rate more than 120, 04/12/17 19:45 05/12/17 19:44 Enalaprilat (Vasotec) 2.5 mg EVERY 6 HOURS PRN IV sbp more than 160 04/12/17 19:45 05/12/17 19:44 Furosemide (Lasix) 20 mg TWICE A DAY ORAL 04/13/17 09:00 05/13/17 08:59 04/14/17 09:34 Heparin Sodium (Porcine) (Heparin 5000 units/ml) 5,000 units EVERY 12 HOURS SUBQ 04/12/17 21:00 05/12/17 20:59 04/14/17 09:38 Ketorolac Tromethamine (Toradol 30mg) 30 mg Q6HR PRN IV moderate pain ( 4-6) 04/12/17 19:45 04/17/17 19:44 04/13/17 10:13 Lisinopril (Zestril) 2.5 mg DAILY ORAL 04/13/17 09:00 05/13/17 08:59 04/13/17 10:11 Morphine Sulfate (Morphine Sulfate) 2 mg EVERY 4 HOURS PRN IVP severe Pain (Pain Scale 7-10) 04/12/17 19:45 04/19/17 19:44 Nitroglycerin (Ntg) 0.4 mg PRN PRN SL Prn Chest Pain EVERY 5 MINUTES 04/12/17 19:45 05/12/17 19:44 Ondansetron HCl (Zofran) 4 mg Q6H PRN IVP Nausea & Vomiting 04/12/17 19:45 05/12/17 19:44 Polyethylene Glycol (Miralax) 17 gm DAILYPRN PRN ORAL Constipation 04/12/17 19:45 05/12/17 19:44 Promethazine HCl/ Codeine (Phenergan with Codeine) 5 ml Q4H PRN ORAL For Cough 04/13/17 12:00 05/13/17 11:59 Temazepam (Restoril) 15 mg HSPRN PRN ORAL Insomnia 04/12/17 19:45 04/19/17 19:44 Theophylline (Conrad-Dur) 100 mg EVERY 12 HOURS ORAL 04/13/17 21:00 05/13/17 20:59 04/14/17 09:34 LARISSA MAXWELL Apr 14, 2017 12:12
[2017-04-14] MEDS ORDERED: Tubing IV Secondary IV ONE (15:14)
--- NOTE | 2017-04-15 09:25 | Discharge Summary ---
Discharge Summary Hospital Course Date of Admission Apr 12, 2017 at 18:38 Date of Discharge Apr 14, 2017 at 15:15 Admitting Diagnosis CHEST PAIN,ACS HPI Jailene Patiño is a 61 year old male who was admitted on Apr 12, 2017 at 18 :38 for Chest Pain, Acute Coronary Syndrome Hospital Course [id number] Discharge Discharge Disposition Patient was discharged to homeless (lives in his car) Discharge Diagnoses: Anisa Babb NP Apr 15, 2017 09:25
--- NOTE | 2017-04-15 16:15 | Discharge Summary 2 SIG ---
DATE OF ADMISSION: 04/12/2017 DATE OF DISCHARGE: 04/14/2017 [employer] LEAD: Grabiel García M.D. Brief Hospital Course: The patient is a 61-year-old homeless male presented to ED for increased difficulty breathing. The patient had gradual onset of symptoms and had increased cough as well as trouble breathing for three days. He was complaining of chest pain as well. He is a current smoker and has a prior history of congestive heart failure and was noted to have prior heart attacks x2. On evaluation at ED, EKG done showed normal sinus rhythm with inferior T-wave inversion. BNP was elevated to 556. Initial troponin was negative. He was wheezing and was given DuoNeb nebulizer treatment and IV Lasix. Chest x-ray done showed enlarged cardiac silhouette with no consolidation, no effusion, no pneumothorax. Due to his high risk for acute coronary syndrome, the patient was admitted to telemetry for further evaluation. He was continued on respiratory treatments and was given aspirin, Plavix, and Lipitor. He was continued on his lisinopril and Coreg. He underwent cardiac evaluation. The patient was seen for similar symptoms at [facility]. 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 There is significant mitral regurgitation documented. There is motion in all ren to some degree unlikely thrombus forming. The pain was described to be ongoing for two months and lasts only few seconds and worsened in certain positions, raising possibility of musculoskeletal pain. He may have underlying coronary artery disease. He was recommended to pursue evaluation at [facility] should he have any new issues as he seemed to have had extensive workup and treatment at that facility that could be followed up on. Troponin remained negative. EKG showed normal sinus rhythm with T-wave inversion in leads III and biphasic T-waves in aVF. There were no other significant abnormalities noted. Social service was consulted to aid in discharge. The patient has regular followup appointments at [facility]. He was given his prescriptions prior to discharge and bus tokens were provided. FINAL DIAGNOSES: 1. Atypical chest pain. 2. Cardiomyopathy. 3. Mitral regurgitation. 4. Coronary artery disease with prior stent. 5. Hypertension. 6. Purulent bronchitis. DISPOSITION: The patient was discharged home. DISCHARGE MEDICATIONS: Refer to medication list. FOLLOWUP: Followup with [facility]. Mata Holbrook M.D. I have been assigned to dictate discharge summary on this account and I was not involved in the patient's management. Anisa Babb N.P. DR: CHANDU JOB#: [id number] CC: AMALIA
--- NOTE | 2017-04-16 02:14 | Cardiology Report ---
APPROVED REPORT EKG Measurement Heart [id number] MI [id number] Normal sinus rhythm Possible Left atrial enlargement Left ventricular hypertrophy Abnormal ECG
--- NOTE | 2017-04-18 08:28 | Cardiology Report ---
APPROVED REPORT EXAM: Two-dimensional and M-mode echocardiogram with Doppler and color Doppler. INDICATION Atrial Fibrillation M-Mode DIMENSIONS IVSd1.3 (0.7-1.1cm)Left Atrium (MM)4.9 (1.6-4.0cm) LVDd1.4 (3.5-5.6cm)Aortic Root3.4 (2.0-3.7cm) PWd6.1 (0.7-1.1cm)Aortic Cusp Exc.2.1 (1.5-2.0cm) LVDs1.8 (2.5-4.0cm) PWs1.8 cm Severe left ventricular enlargement. Severe global left ventricular hypokinesis. Left ventricular ejection fraction estimated to be 20-25 %. Possible LV apical thrombus. Increased E point-interventricular septal separation c/w left ventricular dysfunction. Anterior Echo-free space, may be due to pericardial fat or effusion. Moderate bi-atrial enlargement. Right ventricular chamber size is within normal limits. Moderate focal aortic valve sclerosis with adequate cusp excursion. Thickened mitral valve leaflets with normal excursion. Mitral annulus and aortic root calcification. Pulmonic valve not well visualized. Normal tricuspid valve structure. IVC at normal size with slight physiologic collapse. A color flow and spectral Doppler study was performed and revealed: Mild aortic regurgitation. Moderate to severe mitral regurgitation. Mitral diastolic velocities suggest reduced left ventricular relaxation c/w mild LV diastolic dysfunction (Grade I). Mild tricuspid regurgitation. Tricuspid systolic velocities suggests peak right ventricular systolic pressure of 41 mmHg, consistent with mild pulmonary hypertension. Mild pulmonic regurgitation present. Notified Dr. Holbrook by [place] 10:00am Apr 13, 2017.
--- NOTE | 2017-04-21 23:30 | Cardiology Report ---
APPROVED REPORT EKG Measurement Heart [id number] Sinus rhythm with 1st degree AV block Possible Left atrial enlargement Left ventricular hypertrophy Abnormal ECG
== END 2017-04-14 15:15 | disposition home or self-care (01) | DRG 198 ==
LOC: EDBD 14:35 → EMR 16:00 → 2E 18:38 → EDBEDREQ 18:48
DX: R07.89 Other chest pain (principal); I25.2 Old myocardial infarction; I42.9 Cardiomyopathy, unspecified; I50.9 Heart failure, unspecified; J41.1 Mucopurulent chronic bronchitis; I25.10 Atherosclerotic heart disease of native coronary artery without angina pectoris; Z59.0 Homelessness; Z95.5 Presence of coronary angioplasty implant and graft; F17.200 Nicotine dependence, unspecified, uncomplicated; I34.0 Nonrheumatic mitral (valve) insufficiency
CPT/HCPCS: 36415; 71010; 80053; 80061; 81003; 82550; 82553; 82962; 83605; 83880; 84443; 84484; 85025; 85610; 85730; 86140; 87040; 87070; 87205; 93005; 93306; 94640; 94664; 99285; J7620